=== PATIENT | male | born 1970 | race Caucasian/White ===

== ENCOUNTER 2017-07-14 18:36 | Emergency (ER) | payer SELFPAY ==
[~2017-07-14] VITALS: Ht 185.4 cm; Wt 89.0 kg
[2017-07-14 18:35] VITALS: O2SAT 99
[2017-07-14] MEDS ORDERED: ceFAZolin 2 GM PREMIX 50 ML ONE (18:48)
[2017-07-14] MEDS ORDERED: DIPHTH/TETANUS/ACEL PERTUSSIS (BOOSTER) 0.5 ML VIAL/PFS IM ONE (18:49)
[2017-07-14 18:50] VITALS: BP 140/94; PULSE 110; RESP 21; TEMP 97.9; O2SAT 99
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
[2017-07-14 19:08] LABS: AUTOMATED NEUTROPHIL # 4.7 TH/MM3 (1.8-7.7); BASOPHIL # 0.1 TH/MM3 (0-0.2); BASOPHIL % 0.7 % (0.0-2.0); EOSINOPHIL % 0.4 % (0.0-4.0); HEMATOCRIT 42.2 % (39.0-51.0); HEMOGLOBIN 14.9 GM/DL (13.0-17.0); LYMPH % 26.1 % (9.0-44.0); LYMPHOCYTE # 1.9 TH/MM3 (1.0-4.8); MEAN CELL VOLUME 85.7 FL (80.0-100.0); MEAN CORPUSCULAR HEMOGLOBIN 30.3 PG (27.0-34.0); MEAN CORPUSCULAR HGB CONC 35.4 % (32.0-36.0); MEAN PLATELET VOLUME 7.6 FL (7.0-11.0); MONO % 8.9 % (0.0-8.0); MONOCYTE # 0.7 TH/MM3 (0-0.9); NEUT % 63.9 % (16.0-70.0); PLATELET COUNT 263 TH/MM3 (150-450); RED BLOOD COUNT 4.92 MIL/MM3 (4.50-5.90); RED CELL DISTRIBUTION WIDTH 13.1 % (11.6-17.2); WHITE BLOOD COUNT 7.4 TH/MM3 (4.0-11.0)
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
[2017-07-14 19:25] LABS: INTERNATIONAL NORMALIZED RATIO 1.1 RATIO; PROTHROMBIN TIME - PATIENT 10.9 SEC (9.8-11.6)
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
[2017-07-14] MEDS ORDERED: LIDOCAINE HCL 1% 50 ML VIAL INFIL ONE (19:45)
[2017-07-14 19:49] VITALS: BP 150/71; PULSE 109; RESP 16; O2SAT 100
[2017-07-14 20:09] VITALS: TEMP 97.9
--- NOTE | 2017-07-14 20:09 | PD ---
Data Data Last Documented VS Vital Signs Date Time Temp Pulse Resp B/P (MAP) Pulse Ox O2 Delivery O2 Flow Rate FiO2 07/14/17 20:09 97.9 07/14/17 19:49 100 Room Air 07/14/17 19:49 109 16 07/14/17 18:35 4.00 Orders Orders Cefazolin 2 Gm Premix (Ancef 2 Gm Premix (07/14/17 18:48) Pcnn-Yhl-Lyigpq (Booster) Inj (Boostrix (07/14/17 18:49) I-Stat Profile (07/14/17 18:38) I-Stat Creatinine (07/14/17 18:38) Complete Blood Count With Diff (07/14/17 18:38) Prothrombin Time / Inr (Pt) (07/14/17 18:38) Act Partial Throm Time (Ptt) (07/14/17 18:38) Type And Screen (07/14/17 18:38) Chest, Single Ap (07/14/17 18:38) Pelvis, Ap Only (Routine) (07/14/17 18:38) Ct Brain W/O Iv Contrast(Rout) (07/14/17 18:38) Ct Cerv Spine W/O Contrast (07/14/17 18:38) Ct Abd/Pel W Iv Contrast(Rout) (07/14/17 18:38) Ct Thorax/ Chest W Iv Contrast (07/14/17 18:38) Ct Thor Spine W Iv Contrast (07/14/17 18:38) Ct Lumb Spine W Iv Contrast (07/14/17 18:38) Iv Access Insert/Monitor (07/14/17 18:38) Ecg Monitoring (07/14/17 18:38) Oximetry (07/14/17 18:38) Oxygen Administration (07/14/17 18:38) Wound Care (07/14/17 19:36) Lidocaine 1% Inj (50 Ml) (Xylocaine 1% I (07/14/17 19:45) Ketorolac Inj (Toradol Inj) (07/14/17 20:15) Sodium Chlor 0.9% 1000 Ml Inj (Ns 1000 M (07/14/17 20:15) Electrocardiogram (07/14/17 ) Labs Laboratory Tests Test 07/14/17 18:45 White Blood Count 7.4 TH/MM3 Red Blood Count 4.92 MIL/MM3 Hemoglobin 14.9 GM/DL Bedside Hemoglobin 14.3 G/DL Hematocrit 42.2 % Bedside Hematocrit 42.0 % Mean Corpuscular Volume 85.7 FL Mean Corpuscular Hemoglobin 30.3 PG Mean Corpuscular Hemoglobin Concent 35.4 % Red Cell Distribution Width 13.1 % Platelet Count 263 TH/MM3 Mean Platelet Volume 7.6 FL Neutrophils (%) (Auto) 63.9 % Lymphocytes (%) (Auto) 26.1 % Monocytes (%) (Auto) 8.9 % Eosinophils (%) (Auto) 0.4 % Basophils (%) (Auto) 0.7 % Neutrophils # (Auto) 4.7 TH/MM3 Lymphocytes # (Auto) 1.9 TH/MM3 Monocytes # (Auto) 0.7 TH/MM3 Eosinophils # (Auto) 0.0 TH/MM3 Basophils # (Auto) 0.1 TH/MM3 CBC Comment AUTO DIFF Differential Comment AUTO DIFF CONFIRMED Platelet Estimate NORMAL Platelet Morphology Comment NORMAL Red Cell Morphology Comment NORMAL Prothrombin Time 10.9 SEC Prothromb Time International Ratio 1.1 RATIO Activated Partial Thromboplast Time 21.0 SEC Bedside Sodium 138 MMOL/L Bedside Potassium 3.9 MMOL/L Bedside Chloride 106 MMOL/L Bedside Blood Urea Nitrogen 13 MG/DL Bedside Creatinine 1.0 MG/DL Bedside Glucose 112 MG/DL [facility] Medical Record Reviewed: Yes Supervised Visit with MIK: No Narrative Course CBC & BMP Diagram 07/14/17 18:45 Last Impressions Pelvis X-Ray [id number] Signed Impressions: Service Date/Time: Friday, July 14, 2017 18:37 - CONCLUSION: Unremarkable examination of the pelvis. Cuate Thomas MD Head CT [id number] Signed Impressions: Service Date/Time: Friday, July 14, 2017 18:55 - CONCLUSION: Right sided scalp hematoma and laceration. No acute intracranial abnormality. Cuate Thomas MD Chest X-Ray [id number] Signed Impressions: Service Date/Time: Friday, July 14, 2017 18:37 - CONCLUSION: No acute disease. Cuate Thomas MD Cervical Spine CT [id number] Signed Impressions: Service Date/Time: Friday, July 14, 2017 18:55 - CONCLUSION: 1. No acute findings. Mild degenerative disc disease. Cuate Thomas MD Cross sectional imaging shows no acute injury. The right scalp laceration repaired by advanced provider. Pt reports feeling much better at time of reassessment at 827pm and is suitable for discharge. EKG reveals sinus rhythm without pre-excitation morphology Pt ambulated without difficulty D/w Dr Turner Diagnosis Primary Impression: Head trauma Qualified Codes: S09.90XA - Unspecified injury of head, initial encounter Additional Impression: Laceration of scalp Qualified Codes: S01.01XA - Laceration without foreign body of scalp, initial encounter Referrals: PLEASE RETURN IN 10 DAYS FOR STAPLE REMOVAL Med/Other Pt SpecificInfo: Prescription(s) given Scripts Ibuprofen (Ibuprofen) 600 Mg Tab 600 MG PO Q8H Y for PAIN, #20 TAB 0 Refills Prov: Prashanth Hernandez MD 07/14/17 Disposition: 01 DISCHARGE HOME Condition: Stable Prashanth Hernandez MD Jul 14, 2017 20:09
[2017-07-14] MEDS ORDERED: SODIUM CHLOR 0.9% 1000 ML INJ 1,000 ML IV ONE (20:15)
[2017-07-14] MEDS ORDERED: KETOROLAC TROMETHAMINE 30 MG/ML (IVP) VIAL IV PUSH ONE (20:15)
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
[2017-07-14] MEDS ORDERED: IBUP-232 PO (20:32)
[2017-07-14 21:13] VITALS: BP 142/83
[2017-07-14] MEDS ORDERED: HYDR-3580 PO (21:43)
--- NOTE | 2017-07-15 10:58 | EKG ---
Date Performed: 07/14/2017 Time Performed: 20:31:47 PTAGE: 46 years EKG: SINUS TACHYCARDIA ABNORMAL RHYTHM ECG NO PREVIOUS TRACING DOCTOR: Omar Salmon Interpretating Date/Time 07/15/2017 10:57:08
== END 2017-07-14 21:30 | disposition home or self-care (01) ==
LOC: EDBD 18:36 → NEPI 18:36 → NEPE 21:30
DX: S01.01XA Laceration without foreign body of scalp, initial encounter (principal); R00.0 Tachycardia, unspecified; V17.4XXA Pedal cycle driver injured in collision with fixed or stationary object in traffic accident, initial encounter; Y93.55 Activity, bike riding; Z23 Encounter for immunization
CPT/HCPCS: 12005; 70450; 71010; 71260; 72125; 72129; 72132; 72170; 74177; 82435; 82565; 82947; 84132; 84295; 84520; 85025; 85610; 85730; 86850; 86900; 86901; 90471; 90715; 93005; 96374; 99285; 99291; J0690; J1885; J7030; G0390

== ENCOUNTER 2017-07-26 18:50 | Emergency (ER) | payer SELFPAY ==
[~2017-07-26 18:50] MED LIST: HYDR-3580 PO; IBUP-232 PO
[2017-07-26 18:52] VITALS: BP 137/84; PULSE 84; RESP 14; TEMP 98.2; O2SAT 98
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
[2017-07-26] MEDS ORDERED: IBUPROFEN 400 MG TAB PO ONE (21:30)
== END 2017-07-26 21:23 | disposition home or self-care (01) ==
LOC: NEPK 18:50
DX: S01.01XD Laceration without foreign body of scalp, subsequent encounter (principal); V19.9XXD Pedal cyclist (driver) (passenger) injured in unspecified traffic accident, subsequent encounter; Z48.02 Encounter for removal of sutures
CPT/HCPCS: 99281